=== PATIENT | female | born 1975 | race Caucasian/White ===

== ENCOUNTER 2018-09-27 11:46 | Day surgery (SDC) | payer OTHER ==
--- NOTE | 2018-09-26 13:07 | PDGENHP ---
History and Physical History and Physical: Assessment and Plan: 1. Stress incontinence Soraya has straightforward stress urinary incontinence with a mobile urethra. We reviewed all conservative and surgical options. At the end of our discussion she is interested in scheduling a mid urethral sling procedure. Subjective: Patient ID: Valerie Castañeda is a 42 y.o. female who presents to [facility] for incontinence. JOCELYN Padilla is now 42 years old and has had 2 vaginal births. When I last saw her several years ago she was developing symptoms of stress incontinence. This has worsened over time. She leaks with laughing, coughing, sneezing, walking, and intercourse. She has been doing pelvic floor strengthening exercises as well as weight loss without success. Is quite bothered by this as it interferes now with her quality of life and participating in activities. PastMedicalHistory Past Medical History: Diagnosis Date Acute bronchitis 01/31/2013 Acute conjunctivitis 12/28/2009 Acute sinusitis 01/23/2011 Anxiety Depression Encounter for supervision of normal in first trimester Encounter for supervision of normal in second trimester 07/28/2011 Encounter for supervision of normal in third trimester 09/29/2011 Hemorrhoids in puerperium ANTEPARTUM Mastodynia 07/31/2012 Menorrhagia 09/08/2012 Person with feared complaint in whom no diagnosis was made 08/23/2011 Polymenorrhea 07/31/2012 exam 08/19/2009 exam 12/07/2011 exam 12/10/2011 Upper respiratory infection 03/22/2012 Urinary tract bacterial infections Urinary tract infection Vaginitis 01/30/2011 PastSurgicalHistory Past Surgical History: Procedure Laterality Date BREAST REDUCTION SURGERY CHOLECYSTECTOMY ENDOMETRIAL ABLATION THERMAL INTRAUTERINE DEVICE INSERTION IUD REMOVAL CURRENT MEDICATIONS: Current Outpatient Medications Medication Sig phentermine (ADIPEX-P) 37.5 mg tablet Take 1 tablet by mouth every morning (before breakfast). sumatriptan (IMITREX) 25 mg tablet Take 2 tablets by mouth as needed for Migraine. May repeat dose 1 time after 2 hours if needed. Do not exceed 200mg in 24 hours. No current facility-administered medications for this visit. ALLERGIES: No known drug allergies I have reviewed, verified and agree with the past medical, surgical, , family, social and ROS history as documented by the RN today. Objective: Vital Signs: Visit Vitals BP 112/78 Pulse 74 Temp 36.7 C (98.1 F) (Tympanic) Resp 12 Ht 1.651 m (5' 5") Wt 68.5 kg (151 lb) SpO2 98% BMI 25.13 kg/m Physical Exam Gen: This is an alert, well developed woman in no distress. Neuro: She moves all extremities. Psych: She is appropriate, oriented, with normal affect. Neck: No thyroid enlargement, adenopathy, or tenderness. Lungs: Clear to ascultation, no wheezes or rales. Heart: Regular rate and rhythm without obvious murmurs. Abdomen: Soft, non-tender, without guarding, rebound, or masses. Extremities: No edema or cyanosis. Pelvic: Normal external genitalia. Non-gaping introitus, vagina without discharge, adequately estrogenized, no significant prolapse. Cervix without lesions or discharge. Uterus normal sized, mobile, non-tender. Adnexa non- tender without enlargement. Urethra is mobile. She has obvious leakage of urine with coughing. DATA: I have reviewed the pertinent medical records. TIME/COMMUNICATION: I personally spent a total of 30 minutes. Of that 20 minutes was counseling/ coordination of patient's care. See my note above for details. Levi Hernández MD Board Certified Female Pelvic Medicine and Reconstructive Surgery Director of Minimally Invasive Gynecologic Surgery, [facility] Surgeon in Minimally Invasive Gynecologic Surgery [facility] Surgeon in Robotic Surgery
[2018-09-27] MEDS ORDERED: ACETAMINOPHEN 500 MG TAB PO ONE (12:11)
[2018-09-27] MEDS ORDERED: ceFAZolin 2 GM/DEXTROSE 100 ML IV ONE (12:11)
[2018-09-27] MEDS ORDERED: LR 1,000 ML IV ONE (12:12)
[2018-09-27] MEDS ORDERED: LIDOCAINE 1% 2 ML INJ ID PRN (12:12)
--- NOTE | 2018-09-27 12:32 | PDANEPAE ---
ANE Past Medical History - Cardiovascular History Hx Hypertension: No Hx Arrhythmias: No Hx Chest Pain: No Hx Coronary Artery / Peripheral Vascular Disease: No Hx CHF / Valvular Disease: No Hx Palpitations: No - Pulmonary History Hx COPD: No Hx Asthma/Reactive Airway Disease: No Hx Recent Upper Respiratory Infection: No Hx Oxygen in Use at Home: No Hx Sleep Apnea: No Sleep Apnea Screening Result - Last Documented: Negative - Neurologic History Hx Cerebrovascular Accident: No Hx Seizures: No Hx Dementia: No - Endocrine History Hx Diabetes: No - Renal History Hx Renal Disorders: Yes Renal History Comment: STRESS INCONT - Liver History Hx Hepatic Disorders: No - Neurological & Psychiatric Hx Hx Neurological and Psychiatric Disorders: No - Cancer History Hx Cancer: No - Congenital Disorder History Hx Congenital Disorders: No - GI History Hx Gastrointestinal Disorders: No - Chronic Pain History Chronic Pain: No - Surgical History Prior Surgeries: DANICA BREAST REDUCTION. LUISA BUCKNER Review of Systems Review of Systems: - Exercise capacity Exercise capacity: >=4 METS METS (RN): 4 METS ANE Patient History - Allergies Allergies/Adverse Reactions: No Known Allergies Allergy (Unverified 09/26/18 12:52) - Home Medications Home medications: home medication list seen and reviewed - NPO status NPO Since - Liquids (Date): 09/27/18 NPO Since - Liquids (Time): 10:45 NPO Since - Solids (Date): 09/26/18 NPO Since - Solids (Time): 21:00 - Smoking Hx Smoking Status: Never smoked ANE Labs/Vital Signs - Vital Signs Vital Signs: reviewed preoperatively; see RN documention for details Blood Pressure: 118/78 Heart Rate: 82 Respiratory Rate: 18 O2 Sat (%): 96 Height: 162.56 cm Weight: 65.771 kg ANE Physical Exam - Airway Neck exam: FROM Mallampati Score: Class 1 Mouth exam: normal dental/mouth exam - Pulmonary Pulmonary: clear to auscultation - Cardiovascular Cardiovascular: regular rate and rhythym - ASA Status ASA Status: I ANE Anesthesia Plan Anesthesia Plan: GA w LMA
[2018-09-27] MEDS ORDERED: BUPIVACAINE/EPI 0.5% 30 ML SDV ONE (13:02)
--- NOTE | 2018-09-27 13:25 | PDHPUP ---
History & Physical Update H&P update statement: This history and physical update is based on an assessment of the patient which was completed after admission or registration (within 24 hours), but prior to the surgery/procedure. H&P update: H&P reviewed & patient examined, no change in patient's condition since H&P completed
[2018-09-27] MEDS ORDERED: MIDAZOLAM 2 MG/2 ML VIAL IVP ONE (13:33)
--- NOTE | 2018-09-27 13:34 | POSTOPPROG ---
Post Op Note Date of Operation: 09/27/18 Surgeon: Levi Hernández Chore Tender: None Anesthesia: GET(General Endotracheal) Pre-op Diagnosis: Stress incontinence Post-op Diagnosis: Same Procedure: TOT sling, cysto Findings: No bladder or urethral injury Inf/Abcess present in the surg proc area at time of surgery?: No EBL: Minimal Complications: None
[2018-09-27] MEDS ORDERED: PROPOFOL 200 MG/20 ML VIAL ONE (13:36)
[2018-09-27] MEDS ORDERED: fentaNYL 100 MCG/2 ML INJ ONE (13:36)
[2018-09-27] MEDS ORDERED: PROMETHAZINE HCL 25 MG/ML INJ IVP PRN (14:10)
[2018-09-27] MEDS ORDERED: MEPERIDINE 25 MG/0.5 ML AMP IVP PRN (14:10)
[2018-09-27] MEDS ORDERED: DEXAMETHASONE 4 MG/ML VIAL IVP PRN (14:10)
[2018-09-27] MEDS ORDERED: METOCLOPRAMIDE 10 MG/2 ML VIAL IVP PRN (14:10)
[2018-09-27] MEDS ORDERED: fentaNYL 100 MCG/2 ML INJ IVP PRN (14:10)
[2018-09-27] MEDS ORDERED: ONDANSETRON 4 MG/2 ML VIAL IVP PRN (14:10)
[2018-09-27] MEDS ORDERED: LR 500 ML IV PRN (14:10)
[2018-09-27] MEDS ORDERED: HYDROmorphONE/DILAUDID 2 MG/ML INJ IVP PRN (14:10)
[2018-09-27] MEDS ORDERED: ALBUTEROL 3 ML DEYVIAL IH PRN (14:10)
[2018-09-27] MEDS ORDERED: ACETAMINOPHEN 500 MG TAB PO PRN (14:10)
[2018-09-27] MEDS ORDERED: NALOXONE HCL 0.4 MG/ML INJ IVP PRN (14:10)
--- NOTE | 2018-09-27 14:24 | POSTANESTH ---
Post Anesthetic Evaluation Cardiovascular Status: Normal, Stable Respiratory Status: Normal, Stable Level of Consciousness/Mental Status: Can Participate in Eval Pain Control: Adequate, Prn Tx Ordered Nausea/Vomiting Control: Adequate, Prn Tx Ordered Complications Possibly Related to Anesthesia: None Noted
[2018-09-27] MEDS ORDERED: oxyCODONE IR 5 MG TAB ONE ×2 (15:13→16:23)
[2018-09-27] MEDS: oxyCODONE IR 5 MG TAB PO PRN ×2 (15:14→16:24)
[2018-09-27 15:48] VITALS: BP 101/62
--- NOTE | 2018-09-28 01:29 | GOP ---
DATE OF OPERATION: 09/27/2018 SURGEON: Levi Hernández MD INSULATION BLOWER: None. ANESTHESIA: General. PREOPERATIVE DIAGNOSIS: Stress urinary incontinence. POSTOPERATIVE DIAGNOSIS: Stress urinary incontinence. PROCEDURE PERFORMED: 1. Transobturator sling. 2. Cystoscopy. FINDINGS: SPECIMENS: None. ESTIMATED BLOOD LOSS: Scant. DESCRIPTION OF PROCEDURE: The patient was taken to the operating room where she was identified. Gen eral anesthesia was administered and found to be adequate. She was placed in the lithotomy position and prepared and draped in normal sterile fashion. A Rodriguez catheter was placed in her bladder. A mid urethral incision was made with a scalpel. Tunnels were created bilaterally out towards the ob turator internus muscles. Skin incisions were made over the obturator notches. The Halo trocar was placed through the left skin incision, redirected around the ischial pubic rami and out through the v aginal incision using a vaginal finger as a guide. The lateral sulci were examined, and no evidence of vaginal injury had occurred. The sling was then attached and brought out along the same course. The exact same procedure was performed on the patient's right side. Cystoscopy was then performed. There was no evidence of bladder nor urethral injury seen. There was no mesh in the bladder nor uret hra. No obvious pathology was seen. The sling was then adjusted to allow a small mid urethral gap. The vaginal epithelium was closed with 2-0 Vicryl and skin with 4-0 Monocryl. Anesthesia was revers ed. The patient was taken to PACU awake in stable condition. COMPLICATIONS: None. DISPOSITION: Patient stable to PACU. /[id number]/MODL
== END 2018-09-27 18:03 | disposition home or self-care (01) ==
LOC: FSGY 11:46
PROVIDERS: ATTEND Obstetrics & Gynecology
DX: N39.3 Stress incontinence (female) (male) (principal)
CPT/HCPCS: C1771; J0690; J2250; J2704; J3010